=== PATIENT | female | born 1955 | race Caucasian/White ===

== ENCOUNTER 2018-09-11 07:40 | Emergency (ER) | payer BC ==
[2018-09-11 09:03] VITALS: BP 155/89
--- NOTE | 2018-09-11 10:12 | UC ---
General HPI - HPI Summary HPI Summary: States about 6 days ago started with a head cold. Over past two days, developed red eye with watery drainage. Eyelids are sore, Eyes are itchy and painful. No vision changes. No fevers or chills. No cough. No CP or SOB. Meds: Reviewed - History of Current Complaint Chief Complaint: UCEye Stated Complaint: BI LAT EYE CONCERN Time Seen by Provider: 09/11/18 09:49 Pain Intensity: 4 - Allergy/Home Medications Allergies/Adverse Reactions: Allergies Allergy/AdvReac Type Severity Reaction Status Date / Time IV DYE Allergy Severe seizures Uncoded 09/11/18 08:54 ketorolac eye drops Allergy Severe caused Uncoded 09/11/18 08:54 corneal abrasion PMH/Surg Hx/FS Hx/Imm Hx Previously Healthy: Yes - Surgical History Surgical History: Yes Surgery Procedure, Year, and Place: GALLBLADDER REMOVED 2010. hysterectomy. BILATERAL EYE LENS IMPLANTS. RECTOCELE REPAIR. BACK SURGERY - Social History Alcohol Use: None Substance Use Type: None Smoking Status (MU): Former Smoker Type: Cigarettes When Did the Patient Quit Smoking/Using Tobacco: 2012 Review of Systems All Other Systems Reviewed And Are Negative: Yes Eyes: Positive: Drainage, Eye Redness Physical Exam Triage Information Reviewed: Yes Appearance: Well-Appearing Vital Signs: Initial Vital Signs Temp 97.8 F 09/11/18 08:56 Pulse 78 09/11/18 08:56 Resp 18 09/11/18 08:56 BP 155/89 09/11/18 08:56 Pulse Ox 98 09/11/18 08:56 Vital Signs Reviewed: Yes Eyes: Positive: Conjunctiva Inflamed, Other: - clear discharge ENT: Positive: Pharynx normal, Nasal congestion, TMs normal Neck: Positive: Supple Respiratory: Positive: Lungs clear, Normal breath sounds Cardiovascular: Positive: RRR, No Murmur Course/Dx - Course Course Of Treatment: This is a 63 yr old with URI, red itchy eyes. Dx: Conjunctivitis. Elevated BP - Diagnoses Provider Diagnosis: Conjunctivitis Discharge - Sign-Out/Discharge Documenting (check all that apply): Patient Departure All imaging exams completed and their final reports reviewed: No Studies - Discharge Plan Condition: Good Disposition: HOME Prescriptions: Polymyx/Trimethoprim OPTH* [Polytrim OPHTH*] 2 drop BOTH EYES Q8HR #1 btl Patient Education Materials: Conjunctivitis (ED) Forms: *Work Release Referrals: Xander Mark MD [Primary Care Provider] - Additional Instructions: Continue eye drops as prescribed If no improvement over the next 2-3 days recommend follow up with college president Continue good hand washing Discussed follow up of elevated blood pressure (could be related to decongestant - discussed trying an antihistamine) - Follow up with PCP - Billing Disposition and Condition Condition: GOOD Disposition: Home
== END 2018-09-11 10:18 | disposition home or self-care (01) ==
LOC: UCCORT 07:40
DX: H10.9 Unspecified conjunctivitis (principal); Z88.8 Allergy status to other drugs, medicaments and biological substances; Z91.041 Radiographic dye allergy status; Z87.891 Personal history of nicotine dependence
CPT/HCPCS: 99212; G0463